=== PATIENT | male | born 1970 | race Caucasian/White ===

== ENCOUNTER 2017-04-13 11:15 | Emergency (ER) | payer MEDICAID ==
[~2017-04-13] VITALS: Ht 172.7 cm; Wt 93.0 kg
[2017-04-13 11:20] VITALS: BP 147/80; PULSE 91; RESP 18; TEMP 98.5; O2SAT 99
[2017-04-13] MEDS ORDERED: HYDR-3583 PO (11:30)
[2017-04-13] MEDS ORDERED: GABA600T PO (11:31)
[2017-04-13] MEDS ORDERED: XANA2TAB2 PO (11:31)
[2017-04-13] MEDS ORDERED: SODIUM CHLOR 0.9% 1000 ML INJ 1,000 ML IV SCH (11:51)
--- NOTE | 2017-04-13 11:58 | PD ---
HPI Chief Complaint: Cold / Flu Symptoms Time Seen by Provider: 11:32 Travel History International Travel<30 days: No Contact w/Intl Traveler<30days: No Traveled to known affect area: No History of Present Illness HPI Patient is a 46-year-old male who presents to emergency room with a sore throat with abdominal pain with nausea and vomiting for the past 4 days. Patient reports that he recently came home from a trip from [place], reports that for the past 4 days, he has had a sore throat. Reports no fevers or chills, reports that he has been having abdominal cramping with nausea and vomiting. Reports that he felt constipated a few days ago and ended up taking a laxative. Reports that he is not having normal bowel movements. Reports that he has been having diffuse crampy abdominal pain, denies any dysuria, urinary urgency or frequency. No sick contacts or recent antibiotics. PFSH Past Medical History Anxiety: Yes Musculoskeletal: Yes (back pain) Past Surgical History Surgical History: No Previous Surgery Social History Alcohol Use: No Tobacco Use: Yes (1/2 ppd) Allergies-Medications Reported Meds & Prescriptions Reported Meds & Active Scripts Active Flagyl (Metronidazole) 500 Mg Tab 500 Mg PO QID 10 Days Cipro (Ciprofloxacin HCl) 500 Mg Tab 500 Mg PO BID 10 Days Zofran (Ondansetron HCl) 4 Mg Tab 4 Mg PO Q6HR PRN Reported Gabapentin 600 Mg Tab 600 Mg PO TID Xanax (Alprazolam) 2 Mg Tab 5 Mg PO TID Hydrocodone-Acetaminophen 10-325 mg Tab 1 Tab PO TID Physical Exam Narrative GENERAL: Mild distress SKIN: Focused skin assessment warm/dry. HEAD: Atraumatic. Normocephalic. EYES: Pupils equal and round. No scleral icterus. No injection or drainage. ENT: No nasal bleeding or discharge. Mucous membranes pink and moist. NECK: Trachea midline. No JVD. CARDIOVASCULAR: Regular rate and rhythm. No murmur appreciated. RESPIRATORY: No accessory muscle use. Clear to auscultation. Breath sounds equal bilaterally. GASTROINTESTINAL: Abdomen soft, diffusely tender, nondistended. Hepatic and splenic margins not palpable. MUSCULOSKELETAL: No obvious deformities. No clubbing. No cyanosis. No edema. NEUROLOGICAL: Awake and alert. No obvious cranial nerve deficits. Motor grossly within normal limits. Normal speech. PSYCHIATRIC: Appropriate mood and affect; insight and judgment normal. Data Data Last Documented VS Vital Signs Date Time Temp Pulse Resp B/P Pulse Ox O2 Delivery O2 Flow Rate FiO2 04/13/17 12:27 96 04/13/17 11:20 98.5 91 18 147/80 Orders Complete Blood Count With Diff (04/13/17 11:51) Comprehensive Metabolic Panel (04/13/17 11:51) Lipase (04/13/17 11:51) Urinalysis - C+S If Indicated (04/13/17 11:51) Ct Abd/Pel W/O Iv Contrast (04/13/17 11:51) Iv Access Insert/Monitor (04/13/17 11:51) Ecg Monitoring (04/13/17 11:51) Oximetry (04/13/17 11:51) Morphine Inj (Morphine Inj) (04/13/17 12:00) Ondansetron Inj (Zofran Inj) (04/13/17 12:00) Sodium Chlor 0.9% 1000 Ml Inj (Ns 1000 M (04/13/17 11:51) Sodium Chloride 0.9% Flush (Ns Flush) (04/13/17 12:00) Chest, Single Ap (04/13/17 11:51) Famotidine Inj (Pepcid Inj) (04/13/17 12:00) Group A Rapid Strep Screen (04/13/17 11:51) Strep Culture (Group A) (04/13/17 12:25) Ciprofloxacin (Cipro) (04/13/17 13:30) Metronidazole (Flagyl) (04/13/17 13:30) Labs Laboratory Tests Test 04/13/17 04/13/17 12:25 12:45 White Blood Count 12.1 TH/MM3 Red Blood Count 5.32 MIL/MM3 Hemoglobin 16.2 GM/DL Hematocrit 48.0 % Mean Corpuscular Volume 90.2 FL Mean Corpuscular Hemoglobin 30.5 PG Mean Corpuscular Hemoglobin 33.8 % Concent Red Cell Distribution Width 12.4 % Platelet Count 197 TH/MM3 Mean Platelet Volume 10.0 FL Neutrophils (%) (Auto) 65.4 % Lymphocytes (%) (Auto) 26.6 % Monocytes (%) (Auto) 7.1 % Eosinophils (%) (Auto) 0.6 % Basophils (%) (Auto) 0.3 % Neutrophils # (Auto) 7.9 TH/MM3 Lymphocytes # (Auto) 3.2 TH/MM3 Monocytes # (Auto) 0.9 TH/MM3 Eosinophils # (Auto) 0.1 TH/MM3 Basophils # (Auto) 0.0 TH/MM3 CBC Comment DIFF FINAL Differential Comment Sodium Level 138 MEQ/L Potassium Level 3.9 MEQ/L Chloride Level 105 MEQ/L Carbon Dioxide Level 26.3 MEQ/L Anion Gap 7 MEQ/L Blood Urea Nitrogen 13 MG/DL Creatinine 1.10 MG/DL Estimat Glomerular Filtration 72 ML/MIN Rate Random Glucose 82 MG/DL Calcium Level 8.7 MG/DL Total Bilirubin 0.4 MG/DL Aspartate Amino Transf 18 U/L (AST/SGOT) Alanine Aminotransferase 25 U/L (ALT/SGPT) Alkaline Phosphatase 101 U/L Total Protein 7.5 GM/DL Albumin 3.6 GM/DL Lipase 368 U/L Urine Collection Type CLEAN CATCH Urine Color YELLOW Urine Turbidity CLEAR Urine pH 5.5 Urine Specific [place] 1.018 Urine Protein NEG mg/dL Urine Glucose (UA) NEG mg/dL Urine Ketones NEG mg/dL Urine Occult Blood NEG Urine Nitrite NEG Urine Bilirubin NEG Urine Leukocyte Esterase NEG Urine RBC 0-3 /hpf Urine Squamous Epithelial 0-5 /hpf Cells Microscopic Urinalysis Comment CULT NOT INDICATED Urine Collection Time 12:45 MDM Medical Decision Making Medical Screen Exam Complete: Yes Emergency Medical Condition: Yes Interpretation(s) Vital Signs Date Time Temp Pulse Resp B/P Pulse Ox O2 Delivery O2 Flow Rate FiO2 04/13/17 11:20 98.5 91 18 147/80 99 Differential Diagnosis Differential includes strep pharyngitis, viral syndrome, gastritis, gastroenteritis, small bowel obstruction though unlikely as patient has never had any abdominal surgeries in the past, UTI, electrolyte abnormality Narrative Course Patient is a 46-year-old male who presents to emergency room complaints of sore throat with abdominal pain with nausea and vomiting for the past 4 days. Patient with no fevers or chills, no chest pain or shortness of breath. Patient nontoxic and evaluation. Plan to obtain lab work, CT of the abdomen pelvis ordered as patient does have diffuse cramping abdominal pain. Plan to obtain rapid strep and monitor patient Vital Signs Date Time Temp Pulse Resp B/P Pulse Ox O2 Delivery O2 Flow Rate FiO2 8/15/17 12:27 96 04/13/17 11:20 98.5 91 18 147/80 99 Laboratory Tests Test 04/13/17 04/13/17 12:25 12:45 White Blood Count 12.1 TH/MM3 (4.0-11.0) Red Blood Count 5.32 MIL/MM3 (4.50-5.90) Hemoglobin 16.2 GM/DL (13.0-17.0) Hematocrit 48.0 % (39.0-51.0) Mean Corpuscular Volume 90.2 FL (80.0-100.0) Mean Corpuscular Hemoglobin 30.5 PG (27.0-34.0) Mean Corpuscular Hemoglobin 33.8 % Concent (32.0-36.0) Red Cell Distribution Width 12.4 % (11.6-17.2) Platelet Count 197 TH/MM3 (150-450) Mean Platelet Volume 10.0 FL (7.0-11.0) Neutrophils (%) (Auto) 65.4 % (16.0-70.0) Lymphocytes (%) (Auto) 26.6 % (9.0-44.0) Monocytes (%) (Auto) 7.1 % (0.0-8.0) Eosinophils (%) (Auto) 0.6 % (0.0-4.0) Basophils (%) (Auto) 0.3 % (0.0-2.0) Neutrophils # (Auto) 7.9 TH/MM3 (1.8-7.7) Lymphocytes # (Auto) 3.2 TH/MM3 (1.0-4.8) Monocytes # (Auto) 0.9 TH/MM3 (0-0.9) Eosinophils # (Auto) 0.1 TH/MM3 (0-0.4) Basophils # (Auto) 0.0 TH/MM3 (0-0.2) CBC Comment DIFF FINAL Differential Comment Sodium Level 138 MEQ/L (136-145) Potassium Level 3.9 MEQ/L (3.5-5.1) Chloride Level 105 MEQ/L (98-107) Carbon Dioxide Level 26.3 MEQ/L (21.0-32.0) Anion Gap 7 MEQ/L (5-15) Blood Urea Nitrogen 13 MG/DL (7-18) Creatinine 1.10 MG/DL (0.60-1.30) Estimat Glomerular Filtration 72 ML/MIN (>89) Rate Random Glucose 82 MG/DL (74-106) Calcium Level 8.7 MG/DL (8.5-10.1) Total Bilirubin 0.4 MG/DL (0.2-1.0) Aspartate Amino Transf 18 U/L (15-37) (AST/SGOT) Alanine Aminotransferase 25 U/L (12-78) (ALT/SGPT) Alkaline Phosphatase 101 U/L (45-117) Total Protein 7.5 GM/DL (6.4-8.2) Albumin 3.6 GM/DL (3.4-5.0) Lipase 368 U/L (73-393) Urine Collection Type CLEAN CATCH Urine Color YELLOW (YELLW/STRAW) Urine Turbidity CLEAR (CLEAR) Urine pH 5.5 (5.0-8.5) Urine Specific [place] 1.018 (1.002-1.035) Urine Protein NEG mg/dL (NEG-TRACE) Urine Glucose (UA) NEG mg/dL (NEG) Urine Ketones NEG mg/dL (NEG) Urine Occult Blood NEG (NEG) Urine Nitrite NEG (NEG) Urine Bilirubin NEG (NEG) Urine Leukocyte Esterase NEG (NEG) Urine RBC 0-3 /hpf (0-3) Urine Squamous Epithelial 0-5 /hpf (0-5) Cells Microscopic Urinalysis Comment CULT NOT INDICATED Urine Collection Time 12:45 Patient reevaluated, patient reports that he is feeling much better at this time. Abdomen is soft, nontender, nondistended, no peritoneal signs. Reviewed patient's CT results, patient has mild diffuse wall thickening involving the rectosigmoid colon raising the possibility of mild acute colitis. Given his nausea, vomiting and diarrhea, will treat as colitis with cipro and flagyl. Patient understands that he ultimately will need to follow-up with technology education teacher as outpatient. I also reviewed the incidental findings including tiny non-obstructing bilateral renal calculi, large prostate as well as mild degenerative changes and scoliosis of thoracic lumbar spine A copy of his ct report was given to him as he will need to follow up with pcp and technology education teacher as outpatient. Patient will return to ER as needed Diagnosis Primary Impression: Colitis Additional Impressions: Nausea vomiting and diarrhea Abdominal pain Qualified Code: R10.84 - Generalized abdominal pain Referrals: Hallie Morales MD Patient Instructions: General Instructions, Narcotic given in the ED Additional Instructions: Please return to the ER as needed or if symptoms worsen or progress Please take all antibiotics as prescribed Please follow up with technology education teacher as soon as possible Please follow up with your primary care doctor Please drink plenty of fluids Bring the copy of your radiology report to your doctor's office for follow up Med/Other Pt SpecificInfo: Prescription(s) given Scripts Metronidazole (Flagyl)500 Mg Tiy078 Mg PO QID 10 Days Ref 0 Prov:Renée Caballero DO 04/13/17 Ciprofloxacin (Cipro)500 Mg Qdt714 Mg PO BID 10 Days Ref 0 Prov:Renée Caballero DO 04/13/17 Ondansetron (Zofran)4 Mg Tab4 Mg PO Q6HR PRN (NAUSEA OR VOMITING) #20 TAB Ref 0 Prov:Renée Caballero DO 04/13/17 Disposition: 01 DISCHARGE HOME Condition: Stable Renée Caballero DO Apr 13, 2017 11:58
[2017-04-13] MEDS ORDERED: MORPHINE SULFATE 4 MG/ML INJ IV PUSH ONE (12:00)
[2017-04-13] MEDS ORDERED: FAMOTIDINE 20 MG/2 ML VIAL IV PUSH ONE (12:00)
[2017-04-13] MEDS ORDERED: SODIUM CHLORIDE 0.9% FLUSH 10 ML FLUSH IV FLUSH PRN (12:00)
[2017-04-13] MEDS ORDERED: ONDANSETRON HCL 4 MG/2 ML VIAL IVP ONE (12:00)
[2017-04-13 12:27] VITALS: O2SAT 96
[2017-04-13 12:56] LABS: AUTOMATED NEUTROPHIL # 7.9 TH/MM3 (1.8-7.7); BASOPHIL % 0.3 % (0.0-2.0); EOSINOPHIL # 0.1 TH/MM3 (0-0.4); EOSINOPHIL % 0.6 % (0.0-4.0); LYMPH % 26.6 % (9.0-44.0); LYMPHOCYTE # 3.2 TH/MM3 (1.0-4.8); MEAN CELL VOLUME 90.2 FL (80.0-100.0); MEAN CORPUSCULAR HEMOGLOBIN 30.5 PG (27.0-34.0); MEAN CORPUSCULAR HGB CONC 33.8 % (32.0-36.0); MONO % 7.1 % (0.0-8.0); NEUT % 65.4 % (16.0-70.0); PLATELET COUNT 197 TH/MM3 (150-450); RED BLOOD COUNT 5.32 MIL/MM3 (4.50-5.90); RED CELL DISTRIBUTION WIDTH 12.4 % (11.6-17.2); WHITE BLOOD COUNT 12.1 TH/MM3 (4.0-11.0)
[2017-04-13 13:06] LABS: BLOOD, URINE NEG (NEG); GLUCOSE,URINE NEG (NEG); KETONE, URINE NEG (NEG); NITRITE,URINE NEG (NEG); PH, URINE 5.5 (5.0-8.5)
[2017-04-13 13:06] LABS: CHLORIDE 105 MEQ/L (98-107); POTASSIUM 3.9 MEQ/L (3.5-5.1); SODIUM (NA) 138 MEQ/L (136-145)
[2017-04-13 13:10] LABS: ANION GAP 7 MEQ/L (5-15); BICARBONATE 26.3 MEQ/L (21.0-32.0); BLOOD UREA NITROGEN 13 MG/DL (7-18)
[2017-04-13 13:10] LABS: METHOD OF COLLECTION CLEAN CATCH; URINE COLOR YELLOW (YELLW/STRAW)
[2017-04-13 13:12] LABS: HEMO FLAGS DIFF FINAL
[2017-04-13 13:13] LABS: ALT (GPT) 25 U/L (12-78); AST (GOT) 18 U/L (15-37); GLOMERULAR FILTRATION RATE 72 ML/MIN (>89)
[2017-04-13 13:14] LABS: COMMENT (UR) CULT NOT INDICATED; CULTURE IF INDICATED CULT NOT INDICATED; RBC, URINE 0-3 /hpf (0-3); SQUAMOUS EPITHELIAL CELL URINE 0-5 /hpf (0-5)
[2017-04-13 13:14] LABS: TOTAL BILIRUBIN ADULT 0.4 MG/DL (0.2-1.0)
[2017-04-13 13:16] LABS: ALKALINE PHOSPHATASE 101 U/L (45-117)
--- NOTE | 2017-04-13 13:22 | RADRPT ---
EXAM DATE/TIME: 04/13/2017 12:07 [facility] COMPARISON: No previous studies available for comparison. INDICATIONS : Upset stomach. ORAL CONTRAST: No oral contrast ingested. RADIATION DOSE: 17.18 CTDIvol (mGy) MEDICAL HISTORY : None SURGICAL HISTORY : None. ENCOUNTER: Initial ACUITY: 4 - 6 days PAIN SCALE: 0/10 LOCATION: Abdomen TECHNIQUE: Volumetric scanning of the abdomen and pelvis was performed. Using automated exposure control and ad justment of the mA and/or kV according to patient size, radiation dose was kept as low as reasonably achievable to obtain optimal diagnostic quality images. DICOM format image data is available electro nically for review and comparison. FINDINGS: Mild diffuse wall thickening is noted involving the rectosigmoid colon raising the possibility of mil d acute colitis. Clinical correlation is recommended. The prostate gland is minimally prominent. T here are tiny calcified non-obstructing renal calculi measuring 4 mm on the right and 3 mm on the lef t. No acute obstructive uropathy is noted. Evaluation of the solid organs of the abdomen is limited by the lack of intravenous contrast. No bowel obstruction is noted. The adrenal glands are unremar kable. The pancreas is also unremarkable. No ascites is noted. No lymphadenopathy is noted. The u rinary bladder is unremarkable. Mild degenerative changes and scoliosis of the thoracolumbar spine a re noted. A left inguinal hernia repair has been performed. No recurrent hernia is noted. CONCLUSION: 1. Mild diffuse wall thickening involving the rectosigmoid colon raising the possibility of mild acut e colitis. Clinica correlation is recommended. 2. Tiny calcified non-obstructing bilateral renal calculi measuring 4 mm on the right and 3 mm on the left. 3. Enlarged prostate. 4. Mild degenerative changes and scoliosis of the thoracolumbar spine. Jackson Lopez MD on April 13, 2017 at 12:58 Board Certified Radiologist. This report was verified electronically.
[2017-04-13] MEDS ORDERED: CIPROFLOXACIN 500 MG TAB PO ONE (13:30)
[2017-04-13] MEDS ORDERED: metroNIDAZOLE 500 MG TAB PO ONE (13:30)
[2017-04-13] MEDS ORDERED: ZOFR4TAB PO (13:33)
[2017-04-13] MEDS ORDERED: CIPR-9 PO (13:33)
[2017-04-13] MEDS ORDERED: METR-1 PO (13:33)
--- NOTE | 2017-04-13 13:59 | RADRPT ---
EXAM DATE/TIME: 04/13/2017 11:59 [facility] COMPARISON: No previous studies available for comparison. INDICATIONS : Chest pain and nauseaed for four days. MEDICAL HISTORY : None. SURGICAL HISTORY : None. ENCOUNTER: Initial ACUITY: 4 - 6 days PAIN SCORE: 3/10 LOCATION: Bilateral chest FINDINGS: A single view of the chest demonstrates the lungs to be symmetrically aerated without evidence of in filtrate or effusion. Calcified granulomas are seen in the left upper lung. The cardiomediastinal co ntours are unremarkable. Osseous structures are intact. CONCLUSION: No acute disease. Prieto Meza MD on April 13, 2017 at 13:56 Board Certified Radiologist. This report was verified electronically.
== END 2017-04-13 14:03 | disposition home or self-care (01) ==
LOC: PHED 11:15
DX: K52.9 Noninfective gastroenteritis and colitis, unspecified (principal); R07.9 Chest pain, unspecified; N40.0 Benign prostatic hyperplasia without lower urinary tract symptoms; M41.9 Scoliosis, unspecified; F17.210 Nicotine dependence, cigarettes, uncomplicated
CPT/HCPCS: 71010; 74176; 80053; 81001; 83690; 85025; 87081; 87880; 96361; 96374; 96375; 99285; J2270; J2405; J7030